=== PATIENT | male | born 1940 | race Caucasian/White ===

== ENCOUNTER 2018-03-30 02:37 | Inpatient (IN) | END 2018-04-01 22:15 | DRG 66 ==

== ENCOUNTER 2019-02-05 11:24 | Emergency (ER) | payer MEDICARE, BC ==
[~2019-02-05] VITALS: Wt 102.0 kg
[~2019-02-05 11:24] MED LIST: AMLO5TAB4 PO; ASCO500C7 PO; BENA40TA56 PO; CITA20TA11 PO; CLOP75TA28 PO; DICL75TA2 PO; DOCU-144 PO; DOCU-216 PO; DOXY100T21 PO; DUTA1CPM PO; LOVA20TA PO; PERCOCET PO; RANI150T35 PO; RANI150T5 PO; ROPI1TAB PO; ROPI1TAB41 PO; UBID50TA PO
[2019-02-05 11:44] VITALS: BP 150/85; PULSE 90; RESP 20
[2019-02-05] MEDS ORDERED: KETOROLAC 30 MG INJ IM STA (12:20)
[2019-02-05] MEDS ORDERED: traMADol 50 MG TAB PO ONE (12:30)
[2019-02-05] MEDS ORDERED: TRAM50TA2 PO (13:21)
[2019-02-05] MEDS ORDERED: IBUP-1561 PO (13:21)
--- NOTE | 2019-02-05 14:51 | ERD ---
ER Documentation Chief Complaint Chief Complaint r. hip pain x4 days, stumbled and fell in yard 2 wks ago. 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 Patient states that patient has had chronic mild pain with this hip but has been having difficulty walking for the past 4 days. Patient had a trip and fall in his yard 2 weeks ago while trying to pull a garden hose. Patient denies any other associated symptoms. At home pharmacological/nonpharmacological treatment for symptoms: Denies Denies social concerns; Denies recent foreign travel ROS All systems reviewed and are negative except as per history of present illness. Medications Home Meds Active Scripts Tramadol HCl (Tramadol HCl) 50 Mg Tablet, 25 MG PO Q6 PRN for MODERATE-SEVERE PAIN, #10 TAB Prov:KM GREENFIELD NP 02/05/19 Ibuprofen* (Motrin*) 400 Mg Tab, 400 MG PO Q8 PRN for PAIN AND/OR INFLAMMATION, #30 TAB Prov:KM GREENFIELD NP 02/05/19 Ranitidine Hcl* (Ranitidine Hcl*) 150 Mg Tablet, 150 MG PO HS for 30 Days, #30 TAB 3 Refills Prov:YVONNE ARREOLA MD 04/01/18 Docusate Sodium (Dok) 100 Mg Capsule, 100 MG PO BID for 30 Days, #60 CAP 3 Refills Prov:YVONNE ARREOLA MD 04/01/18 Ropinirole Hcl* (Requip*) 1 Mg Tablet, 1 MG PO HS for 30 Days, #30 TAB 6 Refills Prov:YVONNE ARREOLA MD 04/01/18 Clopidogrel Bisulfate (Clopidogrel) 75 Mg Tablet, 75 MG PO DAILY for 30 Days, #30 TAB 6 Refills Prov:YVONNE ARREOLA MD 04/01/18 Oxycodone Hcl/Acetaminophen (Percocet) 1 Tab Tab, 2 TAB PO Q6H PRN for SEVERE PAIN LEVEL 7-10, #40 TAB Prov:JARRED BRINK NP 07/14/15 Docusate Sodium* (Colace*) 100 Mg Cap, 100 MG PO BID for 30 Days, CAP Prov:REGIDOR,JARRED [employer] 07/14/15 Reported Medications Ascorbic Acid* (Vitamin C*) 500 Mg Capsule.sa, 1000 MG PO DAILY, CAP 03/29/18 Ubidecarenone (COQ10) 50 Mg Tab.chew, 50 MG PO DAILY, TAB.CHEW 03/29/18 Lovastatin* (Lovastatin*) 20 Mg Tablet, 20 MG PO HS, TAB 03/29/18 Dutasteride-Tamsulosin Hcl (Halle) 0.5-0.4 Mg Capsule, 1 CAP PO DAILY, CAP 12/12/15 Ranitidine Hcl* (Zantac*) 150 Mg Tablet, 150 MG PO HS, #30 TAB 12/12/15 Diclofenac Sodium* (Diclofenac Sodium*) 75 Mg Tablet.dr, 75 MG PO BID, TAB 07/08/15 Ropinirole Hcl* (Ropinirole Hcl*) 1 Mg Tablet, 1 MG PO HS, TAB 07/08/15 Amlodipine Besylate* (Norvasc*) 5 Mg Tablet, 5 MG PO DAILY, TAB 07/08/15 Doxycycline Monohydrate* (Doxycycline Monohydrate*) 100 Mg Tablet, 100 MG PO DAILY, TAB 07/08/15 Citalopram Hydrobromide* (Celexa*) 20 Mg Tablet, 20 MG PO DAILY, TAB 07/08/15 Benazepril Hcl* (Benazepril Hcl*) 40 Mg Tablet, 40 MG PO DAILY, TAB 07/08/15 Allergies Allergies: Coded Allergies: No Known Allergy (Unverified , 04/01/18) PMhx/Soc History of Surgery: No Anesthesia Reaction: No Hx Neurological Disorder: Yes (Multiple TIA's) Hx Respiratory Disorders: No Hx Cardiac Disorders: Yes (HTN) Hx Psychiatric Problems: No Hx Miscellaneous Medical Probl: Yes Hx Alcohol Use: No Hx Substance Use: No Hx Tobacco Use: Yes Smoking Status: Former smoker FmHx Family History: No diabetes Physical Exam Vitals Vital Signs Date Temp Pulse Resp B/P (MAP) Pulse Ox O2 O2 Flow FiO2 Time Delivery Rate 02/05/19 98.1 90 20 150/85 96 11:44 (106) Physical Exam Const: No acute distress, afebrile Head: Atraumatic Eyes: Normal Conjunctiva ENT: Normal External Ears, Nose and Mouth. Neck: Full range of motion. No meningismus. Resp: Clear to auscultation bilaterally Cardio: Regular rate and rhythm, no murmurs Abd: Soft, non tender, non distended. No guarding, no masses, no rigidity Skin: No petechiae or rashes Back: No midline or flank tenderness Ext: No cyanosis, or edema; RLE: No internal rotation or shortening noted, tenderness to palpation over bony processes of right hip Neur: Awake and alert x3, speaking in clear sentences, no focal deficits or facial asymmetry Psych: Normal Mood and Affect Results 24 hrs Current Medications Medications Dose Sig/Fernandez Start Time Status Last (Trade) Ordered Route PRN Stop Time Admin Dose Reason Admin Ketorolac 30 mg ONCE STAT 02/05/19 DC 02/05/19 Tromethamine IM 12:20 02/05/19 12:28 (Toradol) 12:22 Tramadol 50 mg ONCE ONCE 02/05/19 DC 02/05/19 HCl PO 12:30 02/05/19 12:29 (Ultram) 12:31 Procedures/MDM ED COURSE: ED course includes a thorough examination and history. The patient was stable throughout ED course. I kept the patient and/or family informed of laboratory and diagnostic imaging results throughout the ED course. LABS: none MEDICATIONS GIVEN IN ER: ketorolac, tramadol Patient tolerated medication well with no adverse reactions. Patient reported improvement in pain. DIAGNOSTIC IMAGING: Read by radiologist. Hip x-ray showing: IMPRESSION: Unremarkable right hip. .Bruce Grider MD, MD Date Time Electronically viewed and signed by .Bruce Grider MD, on 02/05/2019 12:56 Pelvis x-ray showing: IMPRESSION: No acute fracture or subluxation. Mild degenerative changes of the right hip. .Bruce Grider MD, MD Date Time Electronically viewed and signed by .Bruce Grider MD, on 02/05/2019 12:56 PROCEDURES: None. MEDICAL DECISION MAKING: Low suspicion for life-threatening medical emergency. Otherwise healthy patient presenting with constellation of symptoms likely representing uncomplicated [x] as characterized by history, physical exam findings [, radiologic/lab findings]. Patient reassessment @ 0123: results discussed. pain decrased per patient. Patient hemodynamically stable. No respiratory distress, otherwise relatively well appearing and nontoxic. Disposition given. Patient educated on diagnoses, prescriptions, follow-up care, return precautions. Strict return precautions given for worsening condition; questions answered discharge. Patient verbalizes understanding of discharge instructions. PRESCRIPTIONS FOR HOME: tramadol, ibuprofen DISPOSITION: DISCHARGE At this time, patient is stable for discharge and outpatient management. I have instructed the patient to follow-up with his/her primary care physician in 1-2 days. I have discussed with the patient the possibility of needing to see a specialist for further workup and imaging studies if symptoms persist. I have instructed the patient to promptly return to the ER for any new or worsening symptoms including increased pain, fever, nausea, vomiting, weakness or LOC. The patient and/or family expressed understanding of and agreement with this plan. All questions were answered. Home care instructions were provided. DISCLAIMER: Inadvertent spelling and grammatical errors are likely due to EHR/dictation software use and do not reflect on the overall quality of patient care. Also, please note that the electronic time recorded on this note does not necessarily reflect the actual time of the patient encounter. Departure Diagnosis: Primary Impression: Fall Additional Impression: Hip injury Condition: Stable Patient Instructions: Fall, Mechanical, Hip Contusion Referrals: [facility] YOU HAVE RECEIVED A MEDICAL SCREENING EXAM AND THE RESULTS INDICATE THAT YOU DO NOT HAVE A CONDITION THAT REQUIRES URGENT TREATMENT IN THE EMERGENCY DEPARTMENT. FURTHER EVALUATION AND TREATMENT OF YOUR CONDITION CAN WAIT UNTIL YOU ARE SEEN IN YOUR DOCTORS OFFICE WITHIN THE NEXT 1-2 DAYS. IT IS YOUR RESPONSIBILITY TO MAKE AN APPOINTMENT FOR FOLOW-UP CARE. IF YOU HAVE A PRIMARY DOCTOR --you should call your primary doctor and schedule an appointment IF YOU DO NOT HAVE A PRIMARY DOCTOR YOU CAN CALL OUR PHYSICIAN REFERRAL HOTLINE AT IF YOU CAN NOT AFFORD TO SEE A PHYSICIAN YOU CAN CHOSE FROM THE FOLLOWING [facility] [address] [facility]. [facility] [address] [address] [facility] [address] [facility] [address] [facility]. [facility]. [address] [facility]. [facility] YOU HAVE RECEIVED A MEDICAL SCREENING EXAM AND THE RESULTS INDICATE THAT YOU DO NOT HAVE A CONDITION THAT REQUIRES URGENT TREATMENT IN THE EMERGENCY DEPARTMENT. FURTHER EVALUATION AND TREATMENT OF YOUR CONDITION CAN WAIT UNTIL YOU ARE SEEN IN YOUR DOCTORS OFFICE WITHIN THE NEXT 1-2 DAYS. IT IS YOUR RESPONSIBILITY TO MAKE AN APPOINTMENT FOR FOLOW-UP CARE. IF YOU HAVE A PRIMARY DOCTOR --you should call your primary doctor and schedule and appointment IF YOU DO NOT HAVE A PRIMARY DOCTOR YOU CAN CALL OUR PHYSICIAN REFERRAL HOTLINE AT . IF YOU CAN NOT AFFORD TO SEE A PHYSICIAN YOU CAN CHOSE FROM THE FOLLOWING [facility] INSTITUTIONS: [facility] [address] [place] [address] [facility] [address] [place] [address] [facility] + [facility] [address] [place] [address] Additional Instructions: TRAMADOL is an opiate pain medication; take this medication as needed for moderate to severe pain. No operating of heavy machinery while taking this medication. It may cause drowsiness.-Ibuprofen is a medication that will help with pain/inflammation. Take this medication as prescribed. Thank you very much for allowing us to participate in your care. Your health and safety is our top priority at [facility]. It is important to read all discharge instructions and education provided in your discharge packet. Call your primary care doctor TOMORROW for an appointment during the next 2-4 days and bring all the information and medications prescribed. Have prescriptions filled and follow precisely the directions on the label. If the symptoms get worse and your provider is unavailable, return to the Emergency Department immediately. KM GREENFIELD NP Feb 05, 2019 14:51
== END 2019-02-05 15:37 | disposition home or self-care (01) ==
LOC: FTE 11:24
DX: S79.911A Unspecified injury of right hip, initial encounter (principal); I10 Essential (primary) hypertension; W01.0XXA Fall on same level from slipping, tripping and stumbling without subsequent striking against object, initial encounter; Y92.007 Garden or yard of unspecified non-institutional (private) residence as the place of occurrence of the external cause; Z79.02 Long term (current) use of antithrombotics/antiplatelets; Z86.73 Personal history of transient ischemic attack (TIA), and cerebral infarction without residual deficits; Z87.891 Personal history of nicotine dependence
CPT/HCPCS: 72170; 73510; 96372; 99284; J1885